=== PATIENT | male | born 1995 | race Caucasian/White ===

== ENCOUNTER 2016-11-02 20:14 | Emergency (ER) | payer OTHER ==
[~2016-11-02] VITALS: Ht 180.3 cm; Wt 93.5 kg
[2016-11-02 20:16] VITALS: TEMP 36.7; Ht 180.3 cm; Wt 93.5 kg
--- NOTE | 2016-11-02 22:30 | EMERGENCY ROOM VISIT NOTE ---
History Report prepared by Sriibdandy: Kayleigh Tineo Under the Supervision of: Dr. Bahman Leal D.O. First contact with patient: 20:17 Chief Complaint: ALCOHOL OVERDOSE Stated Complaint: ALCOHOL History of Present Illness The patient is a 21 year old male who presents to the Emergency Room with complaints of constant alcohol intoxication beginning just BRONC BUSTER. Per EMS, the patient was found outside of [facility]. They report that his phone was not charged and he did not have a sober friend with him. The patient has nausea and vomiting. He notes that he did eat a lot of [employer] today and usually does not do that. She denies any fall or head injury. Source of History: patient Onset: just BRONC BUSTER Position: other (global) Quality: other (alcohol intoxication) Timing: constant Review of Systems See HPI for pertinent positives & negatives. A total of 10 systems reviewed and were otherwise negative. Past Medical & Surgical Medical Problems: (1) No Known Active Medical Problems Family History No pertinent family history stated. Social History Marital Status: single Housing Status: lives with roommate Occupation Status: [employer] student Current/Historical Medications No Active Prescriptions or Reported Meds Allergies Coded Allergies: No Known Allergies (Unverified , 11/02/16) Physical Exam Vital Signs Date Time Temp Pulse Resp B/P (MAP) Pulse Ox O2 Delivery O2 Flow Rate FiO2 11/02/16 20:23 98 11/02/16 20:16 36.7 98 18 124/73 99 Room Air Physical Exam CONSTITUTIONAL/VITAL SIGNS: Reviewed / noted above. GENERAL: Non-toxic in appearance. INTEGUMENTARY: Warm, dry, and [place]. HEAD: Normocephalic. EYES: without scleral icterus or trauma. ENT/OROPHARYNX: clear and moist. LYMPHADENOPATHY/NECK: Is supple without lymphadenopathy or meningismus. RESPIRATORY: Lungs clear and equal. CARDIOVASCULAR: Regular rate and rhythm. GI/ABDOMEN: Soft and nontender. No organomegaly or pulsatile mass. No rebound or guarding. Normal bowel sounds. EXTREMITIES: Warm and well perfused. BACK: No CVA tenderness. NEUROLOGICAL: Intact without focal deficits. PSYCHIATRIC: normal affect. MUSCULOSKELETAL: Normally developed with good muscle tone. Medical Decision & Procedures ED Course 2017: Previous medical records were reviewed. The patient was evaluated in room A12A. A complete history and physical examination was performed. 1100: On reevaluation, the patient is doing well. I discussed the results and findings with the patient. He verbalized agreement of the treatment plan. The patient was discharged home. Medical Decision There is no evidence of other toxic ingestions, trauma, anemia, hypoglycemia, head injury or intracranial pathology, meningitis, encephalitis, acute intrathoracic or abdominal pathology or other metabolic condition. This is a 21-year-old male who presents to the ED with a chief complaint of vomiting. The patient states that he was at a local establishment and developed vomiting. He states that he ate [employer] for breakfast and was not sure if it was related to that or a combination of his alcohol consumption and what he had to eat. He states that he is here for a bachelor democrat. He cannot find his friends and therefore he was brought to the emergency department because he is from out of town and they are staying in a location that he is unsure of. He essentially has no place to go and no one to help him find his way. Patient's phone was also . The patient is awake, alert and oriented. He states that his nausea and vomiting has improved. He did attempt to call his friends once his phone was charged here, but there was no response. The patient fell asleep and will try to contact his friends tomorrow. He is felt to be stable for discharge once he has a friend pick him up or has a definitive location where he can go. Medication Reconcilliation Current Medication List: was personally reviewed by me Impression Primary Impression: Vomiting Additional Impression: Episode of consumption of alcohol Scribe Attestation The scribe's documentation has been prepared under my direction and personally reviewed by me in its entirety. I confirm that the note above accurately reflects all work, treatment, procedures, and medical decision making performed by me. Departure Information Prescriptions No Active Prescriptions or Reported Meds Referrals No Doctor, Assigned (PCP) Patient Instructions My [facility] Additional Instructions Follow-up with your doctor for further care and evaluation in 1-2 days as needed. Return to the emergency department for worsening or new symptoms or any concerns. You have been examined and treated today on an emergency basis only. This is not a substitute for, or an effort to provide, complete comprehensive medical care. It is impossible to recognize and treat all injuries or illnesses in a single emergency department visit. It is therefore important that you follow up closely with your doctor. Call as soon as possible for an appointment. Problem Qualifiers
[2016-11-02 23:19] VITALS: O2SAT 98
[2016-11-03 06:12] VITALS: BP 142/71; PULSE 92; O2SAT 97
== END 2016-11-03 06:14 | disposition home or self-care (01) ==
LOC: EDBD 20:14 → C.EDA 20:16
DX: R11.10 Vomiting, unspecified (principal); F10.129 Alcohol abuse with intoxication, unspecified